=== PATIENT | female | born 1965 | race Caucasian/White ===

== ENCOUNTER → 2017-09-12 | Outpatient (CLI) | payer OTHER ==
[~2017-09-12] MED LIST: ACP20 PO; ADVIN25050 INH; ASPEC81 PO; BUPR-79 PO; CLR10 PO; EST1 PO; FLNIN NAE; GLC500 PO; HYZ/10015 PO; LOVA20TA4 PO; METO50TA8 PO; NTRGSL/4 UT; OMEG10007 PO; OXGN; SNG10 PO; TIOTCAP INH; [UNRECOGNIZED DRUG - OTHER] PO
[2017-09-12 17:45] LABS: BASO % 0.2 %; BASO ABS # 0.03 K/uL (0-0.2); EOS % 1.3 %; EOS ABS # 0.17 K/uL (0-0.5); HEMATOCRIT 44.5 % (37-47); HEMOGLOBIN 15.2 g/dL (12.0-16.0); IG# 0.04 K/uL (0.00-0.02); LYMPH % 18.3 %; LYMPH ABS # 2.41 K/uL (1.2-3.4); MEAN CELL VOLUME 90.3 fL (80-100); MEAN CORPUSCULAR HEMOGLOBIN 30.8 pg (25-34); MEAN CORPUSCULAR HGB CONC 34.2 g/dl (32-36); MEAN PLATELET VOLUME 10.1 fL (7.4-10.4); MONO % 6.5 %; MONO ABS # 0.86 K/uL (0.11-0.59); NEUT % 73.4 %; NEUT ABS # 9.66 K/uL (1.4-6.5); PLATELET COUNT 277 K/uL (130-400); RED CELL DISTRIBUTION WIDTH CV 12.9 % (11.5-14.5); RED CELL DISTRIBUTION WIDTH SD 42.3 fL (36.4-46.3); WHITE BLOOD COUNT 13.17 K/uL (4.8-10.8)
[2017-09-12 18:03] LABS: ALBUMIN 3.9 gm/dl (3.4-5.0); AST/SGOT 31 U/L (15-37); BLOOD UREA NITROGEN 10 mg/dl (7-18); CALCIUM 9.1 mg/dl (8.5-10.1); CARBON DIOXIDE 28 mmol/L (21-32); CREATININE 0.79 mg/dl (0.60-1.20); GLUCOSE 133 mg/dl (70-99); SODIUM 139 mmol/L (136-145)
[2017-09-12 18:08] LABS: ALKALINE PHOSPHATASE 129 U/L (45-117); ALT/SGPT 36 U/L (12-78); CHOLESTEROL 221 mg/dl (0-200); LDL CHOLESTEROL CALCULATED 144 mg/dl; TOTAL PROTEIN 7.6 gm/dl (6.4-8.2); TRANSFERRIN 357 mg/dl (200-360)
[2017-09-13 06:23] LABS: HEMOGLOBIN A1C 7.7 % (4.5-5.6)
== END ==
LOC: C.LABMFLN 11:01
PROVIDERS: ATTEND Family Medicine
DX: E11.9 Type 2 diabetes mellitus without complications (principal); Z98.84 Bariatric surgery status; R10.13 Epigastric pain; I10 Essential (primary) hypertension